=== PATIENT | female | born 1970 | race Two or more races ===

== ENCOUNTER 2017-05-03 16:58 | Emergency (ER) | payer SELFPAY ==
[~2017-05-03] VITALS: Ht 157.5 cm; Wt 82.3 kg
[2017-05-03 17:02] VITALS: BP 156/97
== END 2017-05-03 17:41 | disposition home or self-care (01) ==
LOC: ED 17:15
DX: B02.9 Zoster without complications (principal)
CPT/HCPCS: 99283